=== PATIENT | female | born 1995 | race Caucasian/White ===

== ENCOUNTER 2017-03-09 17:59 | Emergency (ER) | payer OTHER ==
[~2017-03-09 17:59] MED LIST: MOTRIN600 M2 PO; NAPROXEN500 M1 PO; SYNTHROID PO
== END 2017-03-09 18:10 | disposition home or self-care (01) ==
LOC: SED 17:59
DX: B34.9 Viral infection, unspecified (principal); J32.9 Chronic sinusitis, unspecified; Z91.040 Latex allergy status; Z79.899 Other long term (current) drug therapy
CPT/HCPCS: 87651; 99282

== ENCOUNTER 2017-05-23 14:24 | Emergency (ER) | payer OTHER ==
[2017-05-23] MEDS ORDERED: PRENATAL ONE D1 EACH PO (14:31)
== END 2017-05-23 16:44 | disposition home or self-care (01) ==
LOC: SED 14:24
DX: J02.9 Acute pharyngitis, unspecified (principal); E03.9 Hypothyroidism, unspecified; Z88.0 Allergy status to penicillin; Z91.040 Latex allergy status; Z79.899 Other long term (current) drug therapy
CPT/HCPCS: 87651; 99283

== ENCOUNTER 2017-06-24 15:49 | Emergency (ER) | payer OTHER ==
--- NOTE | ~2017-06-24 | US6 ---
[facility] A Service [facility] RADIOLOGY TEXT RESULTS PATIENT: ESTELA HO LOCATION: SED : 95 UNIT #: [id number] AGE: [address]: Ailyn Ornelas APRN SEX: F ORDER DR: [id number] [address] [address] [id number] MR#: [id number] Acc #: [id number] NAME: ESTELA HO : 1995 SEX: F STUDY DATE/TIME: 06/24/2017 18:16 UNIT: SED ROOM: STUDY DESCRIPTION: US Abdominal Limited Attending Physician: Ailyn Ornelas A.P.R.N. Ordering Physician: Ailyn Ornelas A.P.R.N. Primary Care Physician: [facility], [facility]. MEDICAL IMAGING REPORT This report is preliminary unless electronic signature is present. EXAM Abdominal ultrasound of the right upper quadrant. COMPARISON None available. INDICATIONS Generalized abdominal pain. Right upper quadrant with nausea and vomiting. 19-week gestational . FINDINGS Visualized portions of the pancreas are normal. Echogenicity and echotexture of the liver is normal. No hepatic mass. The intrahepatic bile ducts are normal in caliber. The common duct at the yani hepatis could not be cannot visualized. There are gallstones in the gallbladder. No gallbladder wall thickening, pericholecystic fluid, or gallbladder distension. The right kidney measures 11 cm. Renal cortical thickness and echogenicity is normal. No hydronephrosis. No ascites. IMPRESSION Cholelithiasis. No ultrasound evidence of an acute cholecystitis. Dictated by... Dev Alvarez M.D. THIS IS AN ELECTRONICALLY VERIFIED REPORT [facility] A Service of [facility] RADIOLOGY TEXT RESULTS PATIENT: ESTELA HO LOCATION: SED : 95 UNIT #: [id number] AGE: [address]: Ailyn Ornelas APRN SEX: F ORDER DR: Dev Alvarez M.D. at 06/25/2017 3:55 PM SHANNAN/kourtney TD: 06/25/2017 13:51 JOB #: [id number] MEDICAL IMAGING REPORT Page 1 of 1
[~2017-06-24 15:49] MED LIST changes: +PRENATAL ONE D1 EACH PO
[2017-06-24 16:42] LABS: BASOPHIL% 0.1 % (0-2.5); EOSINOPHIL# 0.2 X10e3 (0-0.7); EOSINOPHIL% 1.8 % (0.0-7.0); HEMATOCRIT 39.2 % (35.0-45.0); HEMOGLOBIN 13.9 gm/dL (12.0-16.0); LYMPHOCYTE# 1.6 X10e3 (1.0-3.5); LYMPHOCYTE% 13.4 % (17.0-45.0); MEAN CELL VOLUME 83.1 FL (83-96); MEAN CORPUSCULAR HEMOGLOBIN 29.6 PG (28-34); MEAN CORPUSCULAR HGB CONC 35.6 g/dL (30-36); MEAN PLATELET VOLUME 8.3 FL (6.5-11.5); MONOCYTE# 0.5 X10e3 (0-1.0); MONOCYTE% 3.7 % (3.0-12.0); NEUTROPHIL# 9.8 X10e3 (1.5-7.1); PLATELET COUNT 255 X10e3 (140-420); RED BLOOD COUNT 4.71 X10e (3.90-5.30); RED CELL DISTRIBUTION WIDTH 13.3 % (11.0-15.5); WHITE BLOOD COUNT 12.1 X10e3 (4.0-10.5)
[2017-06-24 16:47] LABS: URINE SOURCE CLEAN CATCH
[2017-06-24 16:48] LABS: DIFF IND NO
[2017-06-24 16:51] LABS: URINE APPEARANCE HAZY; URINE BILIRUBIN NEG (NEG); URINE BLOOD NEG (NEG); URINE COLOR YELLOW; URINE GLUCOSE NEG (NORM); URINE KETONE NEG (NEG); URINE LEUKOCYTE ESTERASE NEG (NEG); URINE NITRATE NEG (NEG); URINE PROTEIN NEG (NEG); URINE SPECIFIC GRAVITY 1.015 (1.003-1.035)
[2017-06-24 16:58] LABS: ALBUMIN SERUM 3.6 g/dL (3.5-5.0); ALKALINE PHOSPHATASE 65 U/L (32-92); ALT (SGPT) 14 U/L (10-40); AST (SGOT) 15 U/L (10-42); BILIRUBIN, DIRECT <0.1 mg/dL (0.0-0.2); BILIRUBIN,INDIRECT 0.3 mg/dL (0.0-0.9); BILIRUBIN,TOTAL 0.4 mg/dL (0.2-2.0); BLOOD UREA NITROGEN <5 mg/dL (9-23); CALCIUM SERUM 9.1 mg/dL (8.4-10.2); CARBON DIOXIDE 23 mmol/L (22-31); CHLORIDE 105 mmol/L (100-111); CREATININE SERUM 0.5 mg/dL (0.6-1.4); GLOM FILT RATE Estimated 138.4 mL/min (>60); GLUCOSE FASTING 82 mg/dL (70-110); LIPASE 21 U/L (22-51); POTASSIUM 3.4 mmol/L (3.5-5.1); PROTEIN TOTAL SERUM 7.2 g/dL (6.0-8.3); SODIUM 136 mmol/L (135-145)
[2017-06-24 17:07] LABS: MICRO INDICATED? NO
== END 2017-06-24 21:40 | disposition hospice, home (50) ==
LOC: SED 15:49
PROVIDERS: Nurse Practitioner Family
DX: R10.31 Right lower quadrant pain (principal); Z91.040 Latex allergy status
CPT/HCPCS: 36415; 76705; 80048; 80076; 81003; 83690; 85025; 96360; 99285; J2270